=== PATIENT | male | born 1945 | race Hispanic/Latino ===

== ENCOUNTER 2017-06-09 18:04 | Observation (INO) | payer OTHER ==
[~2017-06-09] VITALS: Ht 167.6 cm; Wt 70.8 kg
[~2017-06-09 18:04] MED LIST: ACTOPLUS MET 11 EAC1 PO; ASPIRIN EC81 M1 PO; CLOTRIMAZOLE-BE15 GM TOP; ETODOLAC PO; FENOFIBRIC ACI135 M1 PO; PRED FORTE1 ML OS; PREDNISOLONE ACE5 ML OD; TOPROL XL25 M1 PO; TOPROL XL50 M1 PO
[2017-06-09 18:38] LABS: ABSOLUTE BASOPHIL COUNT 0 /CUMM (0.0-0.2); ABSOLUTE EOSINOPHIL COUNT 0.1 /CUMM (0.0-0.7); ABSOLUTE GRANULOCYTE CT 3.4 /CUMM (1.4-6.5); ABSOLUTE LYMPH COUNT 1.1 /CUMM (1.2-3.4); ABSOLUTE MONOCYTE COUNT 0.3 /CUMM (0.10-0.60); BASOPHIL % 0.4 % (0.0-2.0); GRANULOCYTE % 68.2 % (42.2-75.2); HEMATOCRIT 42.4 % (42-52); MEAN CORPUSCULAR HGB 31.2 PG (27.0-31.0); MEAN CORPUSCULAR VOLUME 97.5 FL (80.0-94.0); MEAN PLATELET VOLUME 9.7 FL (7.4-10.4); PLATELET COUNT 280 /CUMM (130-400); RBC DISTRIBUTION WIDTH 17.9 % (11.5-14.5); RED BLOOD CELL CT 4.35 /CUMM (4.70-6.10)
--- NOTE | 2017-06-09 18:56 | ED CARDIAC/CP/PALPITATIONS ---
History of Present Illness General Chief Complaint: Chest Pain Stated Complaint: CHEST TIGHTNESS Source: patient Exam Limitations: no limitations Vital Signs & Intake/Output Vital Signs & Intake/Output Vital Signs Date Time Temp Pulse Resp B/P B/P Pulse O2 O2 Flow FiO2 Mean Ox Delivery Rate 06/09 2355 98.0 56 18 112/62 96 Room Air 06/09 2222 97.9 61 17 106/68 96 Room Air 06/09 2023 61 116/72 06/09 1999 97.7 63 16 124/78 97 Room Air 06/09 1832 97.1 69 20 128/77 98 Room Air ED Intake and Output 06/10 0000 06/09 1200 Intake Total Output Total Balance Patient 156 lb Weight Weight Reported by Patient Measurement Method Allergies Coded Allergies: ibuprofen (FACIAL SWELLING 06/09/17) shellfish derived (ANAPHYLAXIS 06/09/17) Reconcile Medications Aspirin (Ecotrin*) 81 MG TABLET.DR 2 TAB PO DAILY HEART/BLOOD (Reported) Clotrimazole/Betamethasone Dip (Clotrimazole-Betamethasone Crm) 1 %-0.05 % CREAM..G. 1 LINWOOD TOP PRN SKIN (Reported) apply to affected area(s) Etodolac 500 MG TABLET 1 TAB PO PRN PAIN (Reported) Fenofibric Acid (Choline) (Fenofibric Acid) 135 MG CAPSULE.DR 1 CAP PO DAILY CHOLESTEROL/TRIGLYCERIDES (Reported) Metoprolol Succ XL (Toprol XL) 25 MG TAB 1 TAB PO DAILY Heart Pioglitazone HCl/Metformin HCl (Actoplus Met 15 MG-850 MG Tab) 15 MG-850 MG TABLET 1 TAB PO DAILY DM (Reported) Prednisolone Acetate 1 % DROPS.SUSP 1 GTT OD DAILY RIGHT EYE (Reported) Prednisolone Acetate (Pred Forte) 1 % DROPS.SUSP 1 GTT OS Monday LEFT EYE (Reported) Valacyclovir HCl (Valacyclovir) 1,000 MG TABLET 1,000 MG PO BID ORAL CANKER SORE (Reported) Triage Note: TRIAGE: PT TO ER C/C MID CHEST TIGHTNESS, ONSET THIS MORNING. CONSTANT SINCE ONSET. -SOB, -N/V, -DIAPHORESIS. PT WITH SIGNIFICANT CARDIAC HX INCLUDING KS, CABG. HAD EKG AND BLOOD WORK IN [place] PRIOR TO TRIAGE. Triage Nurses Notes Reviewed? yes Onset: Gradual Duration: hour(s):, waxing and waning Timing: recent history Quality/Severity: moderate Location: central Radiation: no radiation Activities at Onset: none Prior Chest Pain/Card Workup: no prior chest pain Modifying Factors: Improves With: rest. HPI: 72 YO gentleman h/o cabg in 2013, presents with 3/10 chest tightness since this morning. He has no diaphoresis, radiation, shortness of breath, wheeze, fever. He is uncertain about etiology of his symptoms. He is otherwise well. Past History Travel History Traveled to [place] past 21 day No Medical History Any Pertinent Medical History? 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 No Review of Systems Review of Systems Constitutional: Reports: no symptoms. EENTM: Reports: no symptoms. Respiratory: Reports: no symptoms. Cardiovascular: Reports: no symptoms. GI: Reports: no symptoms. Genitourinary: Reports: no symptoms. Musculoskeletal: Reports: no symptoms. Skin: Reports: no symptoms. Neurological/Psychological: Reports: no symptoms. Hematologic/Endocrine: Reports: no symptoms. Immunologic/Allergic: Reports: no symptoms. All Other Systems: Reviewed and Negative Physical Exam Physical Exam General Appearance: well developed/nourished, mild distress Head: atraumatic, normal appearance Eyes: Bilateral: normal appearance. Ears, Nose, Throat: normal pharynx, normal ENT inspection Neck: normal inspection, supple, full range of motion Respiratory: normal breath sounds, chest non-tender Cardiovascular: regular rate/rhythm Gastrointestinal: normal bowel sounds, soft, non-tender Back: normal inspection Extremities: normal inspection Neurologic/Psych: no motor/sensory deficits, awake, alert Skin: intact, normal color, warm/dry Core Measures ACS in differential dx? Yes No ASA d/t aspirin given CVA/TIA Diagnosis No Sepsis Present: No Sepsis Focused Exam Completed? No Progress Differential Diagnosis: AMI, pneumonia, unstable angina Plan of Care: Orders Procedure Date/time Status Consistent Carbohydrate 3 06/10 B Active TROPONIN LEVEL 06/10 06 Active BASIC ELECTROLYTES PLUS BUN&CR 06/10 06 Active EKG 06/10 06 Active TROPONIN LEVEL 06/10 0005 Complete EKG 06/10 0005 Active Pathway - chart 06/09 2352 Active Vital Signs 06/09 2341 Active Teach/Educate 06/09 2341 Active Pain Treatment and Response 06/09 2341 Active Nutritional Intake, Monitor 06/09 2341 Active Isolation 06/09 2341 Active Intake & Output 06/09 2341 Active Patient Care Conference 06/09 2341 Active Activity/Ambulation 06/09 2341 Active Patient Data 06/09 2054 Active Saline Lock 06/[address] in observation 06/09 2043 Active Misc Message 06/09 2043 Active ED Holding Orders 06/09 2043 Active Vital Signs 06/09 204 Active Code Status 06/09 2043 Active Add-on Test (ER Only) 06/09 1856 Active Intake & Output 06/09 1842 Active D-DIMER 06/09 1825 Complete Telemetry/Street Roller Engineer 06/09 181 Active TROPONIN LEVEL 06/09 181 Complete COMPREHENSIVE METABOLIC PANEL 06/09 181 Complete CBC WITHOUT DIFFERENTIAL 06/09 181 Complete EKG 06/09 1805 Active House Staff 06/09 UNK Active VTE Mechanical Prophylaxis 06/09 UNK Active FingerStick- Glucose 06/09 UNK Active ECHOCARDIOGRAM 06/09 UNK Active Current Medications Sig/Jed Start time Last Medication Dose Stop Time Status Admin Aspirin Buffered 162 MG DAILY 06/10 1000 AC (Ecotrin) Fenofibrate 145 MG DAILY 06/10 1000 AC (Tricor) Metoprolol Succinate 25 MG DAILY 06/10 1000 AC (Toprol XL) Prednisolone 1 GTT DAILY 06/10 1000 AC (Pred Forte) Valacyclovir HCl 1,000 MG BID 06/10 1000 AC (Valtrex) Insulin Aspart 0 TIDAC 06/10 08 AC (NovoLOG) Heparin Sodium 5,000 UNIT Q8 06/10 06 AC (Porcine) Laboratory Tests 06/10/17 0025: Troponin I < 0.01 06/09/17 1825: Anion Gap 12, Estimated GFR 43 L, BUN/Creatinine Ratio 23.1, Glucose 124 H, Calcium 9.3, Total Bilirubin 0.5, AST 34, ALT 38, Alkaline Phosphatase 53, Troponin I < 0.01, Total Protein 6.7, Albumin 3.8, Globulin 2.9, Albumin/ Globulin Ratio 1.3, D-Dimer High Sensitivty < 200, CBC w Diff NO MAN DIFF REQ, RBC 4.35 L, MCV 97.5 H, MCH 31.2 H, MCHC 32.0 L, RDW 17.9 H, MPV 9.7, Gran % 68.2, Lymphocytes % 22.6, Monocytes % 6.8, Eosinophils % 2.0, Basophils % 0.4, Absolute Granulocytes 3.4, Absolute Lymphocytes 1.1 L, Absolute Monocytes 0.3, Absolute Eosinophils 0.1, Absolute Basophils 0 Diagnostic Imaging: Viewed by Me: Radiology Read. Discussed w/RAD: Radiology Read. CXR Impression: PATIENT: CINDA ROCHE PRESENT AGE: 72 PATIENT ACCOUNT NO: [id number] : 47 LOCATION: [facility] ORDERING PHYSICIAN: Rush López MD SERVICE DATE: 06/09/17 EXAM TYPE: RAD - XRY- PORTABLE CHEST XRAY EXAMINATION: XR PORTABLE CHEST CLINICAL INFORMATION: Chest pain COMPARISON: Prior chest CT and chest x-ray March 2016. TECHNIQUE: Portable frontal view of the chest was obtained. FINDINGS: Sternotomy wires in place and intact. Lungs clear. Cardiac silhouette is dynamic and pulmonary vascularity normal. Bone and soft tissues unremarkable. IMPRESSION: Postoperative changes stable. No acute disease. DICTATED BY: Alber Urbina MD DATE/TIME DICTATED:06/09/171946 PLATFORM OPERATIONS DIRECTOR:KATIANA DATE/TIME TRANSCRIBED:06/09/171946 CONFIDENTIAL, DO NOT COPY WITHOUT APPROPRIATE AUTHORIZATION. <Electronically signed in Other Vendor System> SIGNED BY: Alber Urbina MD 06/09/171950 Initial ED EKG: no acute changes Departure Departure Disposition: STILL A PATIENT Condition: Stable Clinical Impression Primary Impression: Chest pain Referrals: Bo Ramos MD (PCP/Family) Departure Forms: Customer Survey General Discharge Information Observation Note Spoke With: Gilmar DELGADO,Manuel Place Patient In: Non-ED OBS Care Area Rationale for Observation: My rational for observation is as follows . pt with nitro responsive chest pain, h/o cabg/ cad. pt to be placed in observation, serial trops/ekg cards to evaluate in AM. 20:[address] escudero. Critical Care Note Critical Care Note Critical Care Time: 30-74 min Comments: pt given nitro which led to resolution of chest pain.
--- NOTE | 2017-06-09 19:51 | RADIOLOGY REPORT ---
EXAMINATION: XR PORTABLE CHEST CLINICAL INFORMATION: Chest pain COMPARISON: Prior chest CT and chest x-ray March 2016. TECHNIQUE: Portable frontal view of the chest was obtained. FINDINGS: Sternotomy wires in place and intact. Lungs clear. Cardiac silhouette is dynamic and pulmonary vascularity normal. Bone and soft tissues unremarkable. IMPRESSION: Postoperative changes stable. No acute disease.
[2017-06-09] MEDS ORDERED: VALACYCLOVIR1000 MG PO (21:01)
--- NOTE | 2017-06-09 21:24 | History & Physical ---
Santhosh Goetz MD 06/09/172122: General Information and HPI MD Statement: I have seen and personally examined CINDA ROCHE and documented this H&P. The patient is a 72 year old M who presented with a patient stated chief complaint of [chest tightness]. Source of Information: patient Exam Limitations: no limitations History of Present Illness: Patient is a 72-year-old male with PMH significant for CAD status post CABG, HTN , HLD, DM, CKD, sciatica, OA, glaucoma, benign neck tumor who presents complaining of chest tightness. Patient stated he was awoken at 1 AM the morning of admission with chest discomfort which he describes as a substernal tightness. He described the pain as positional, worsening when transitioning from a supine to a sitting position. He was able to go to work and at times did not notice the discomfort however he believes that it was constantly present and did not change from a 3/10. The pain did not anila after work and he came to the ED. After receiving aspirin and nitroglycerin in the ED the discomfort improved. He denied any radiation, associated shortness of breath, diaphoresis, lightheadedness, dizziness, nausea, vomiting. Allergies/Medications Allergies: Coded Allergies: ibuprofen (FACIAL SWELLING 06/09/17) shellfish derived (ANAPHYLAXIS 06/09/17) Home Med list Aspirin (Ecotrin*) 81 MG TABLET.DR 2 TAB PO DAILY HEART/BLOOD (Reported) Clotrimazole/Betamethasone Dip (Clotrimazole-Betamethasone Crm) 1 %-0.05 % CREAM..G. 1 LINWOOD TOP PRN SKIN (Reported) apply to affected area(s) Etodolac 500 MG TABLET 1 TAB PO PRN PAIN (Reported) Fenofibric Acid (Choline) (Fenofibric Acid) 135 MG CAPSULE.DR 1 CAP PO DAILY CHOLESTEROL/TRIGLYCERIDES (Reported) Metoprolol Succ XL (Toprol XL) 25 MG TAB 1 TAB PO DAILY Heart Nitroglycerin (Nitrostat) 0.4 MG TAB.SUBL 1 TAB SL AD PRN CHEST PAIN 1st sign of attack; may repeat every 5 minutes until relief; if pain persists after 3 tablets in 15 minutes, prompt medical att.. Nitroglycerin (Nitro-Bid) 2 % OINT...G. 0.5 GM TOP DAILY CHEST PAIN use it once in the morning and wash it off after 12 hrs Pioglitazone HCl/Metformin HCl (Actoplus Met 15 MG-850 MG Tab) 15 MG-850 MG TABLET 1 TAB PO DAILY DM (Reported) Prednisolone Acetate 1 % DROPS.SUSP 1 GTT OD DAILY RIGHT EYE (Reported) Prednisolone Acetate (Pred Forte) 1 % DROPS.SUSP 1 GTT OS Monday LEFT EYE (Reported) Valacyclovir HCl (Valacyclovir) 1,000 MG TABLET 1,000 MG PO BID ORAL CANKER SORE (Reported) Past History Travel History Traveled to [place] past 21 day No Medical History Neurological: NONE EENT: glaucoma Cardiovascular: hypertension, hyperlipidemia, myocardial infarction (inferior), CAD, CABG X 3 07/13 ON HIGH BLOOD PRESSURE MEDS Respiratory: NONE Gastrointestinal: NONE Hepatic: NONE Renal: nephrolithiasis Musculoskeletal: osteoarthritis, sciatica Psychiatric: NONE Endocrine: diabetes Blood Disorders: NONE Cancer(s): NONE 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 FATHER FH: NV (myocardial infarction), Onset: 60+. BROTHER FH: NV (myocardial infarction), Onset: 60+. SISTER FH: NV (myocardial infarction), Onset: 60+. Psychosocial History Where do you live? Home Who Do You Live With? spouse Smoking Status: Never Smoked ETOH Use: denies use Illicit Drug Use: denies illicit drug use Functional Ability ADLs Independent: dressing, eating, toileting, bathing. Ambulation: independent IADLs Independent: shopping, housework, finances, food prep, telephone, transportation , medication admin. Review of Systems Review of Systems Constitutional: Denies: chills, fever, malaise, weakness. EENTM: Denies: blurred vision, double vision, visual changes. Cardiovascular: Reports: chest pain (pressure). Denies: orthopena, palpitations. Respiratory: Denies: cough, orthopnea, short of breath. GI: Reports: no symptoms. Genitourinary: Reports: no symptoms. Musculoskeletal: Reports: no symptoms. Skin: Reports: no symptoms. Neurological/Psychological: Reports: no symptoms. Exam & Diagnostic Data Last 24 Hrs of Vital Signs/I&O Vital Signs Date Time Temp Pulse Resp B/P B/P Pulse O2 O2 Flow FiO2 Mean Ox Delivery Rate 06/09 2355 98.0 56 18 112/62 96 Room Air 06/09 2222 97.9 61 17 106/68 96 Room Air 06/09 2023 61 116/72 06/09 1999 97.7 63 16 124/78 97 Room Air 06/09 1832 97.1 69 20 128/77 98 Room Air Intake & Output 06/10 0800 06/10 0000 06/09 1600 Intake Total Output Total Balance Patient 156 lb 156 lb Weight Weight Reported by Patient Measurement Method Physical Exam General Appearance Alert, Oriented X3, Cooperative, No Acute Distress Skin Temp/Moisture Exam: Warm/Dry Sepsis Skin Exam (color): Normal for Ethnicity Neck Supple, No JVD Cardiovascular Regular Rate, Normal S1, Normal S2, surgical scar in the midline of the chest, chest is not tender to palpation Lungs Clear to Auscultation, Normal Air Movement Abdomen Normal Bowel Sounds, Soft, No Tenderness Neurological Normal Speech, Strength at 5/5 X4 Ext, Normal Tone, Sensation Intact, Cranial Nerves 3-12 NL Extremities No Clubbing, No Cyanosis, No Edema Last 24 Hrs of Labs/Darryn: Laboratory Tests 06/10/17 0025: Troponin I < 0.01 06/09/17 1825: Anion Gap 12, Estimated GFR 43 L, BUN/Creatinine Ratio 23.1, Glucose 124 H, Calcium 9.3, Total Bilirubin 0.5, AST 34, ALT 38, Alkaline Phosphatase 53, Troponin I < 0.01, Total Protein 6.7, Albumin 3.8, Globulin 2.9, Albumin/ Globulin Ratio 1.3, D-Dimer High Sensitivty < 200, CBC w Diff NO MAN DIFF REQ, RBC 4.35 L, MCV 97.5 H, MCH 31.2 H, MCHC 32.0 L, RDW 17.9 H, MPV 9.7, Gran % 68.2, Lymphocytes % 22.6, Monocytes % 6.8, Eosinophils % 2.0, Basophils % 0.4, Absolute Granulocytes 3.4, Absolute Lymphocytes 1.1 L, Absolute Monocytes 0.3, Absolute Eosinophils 0.1, Absolute Basophils 0 Diagnostic Data EKG Results NSR with PAC, 1st degree AV block MI 252, HR 67, QTc 325 CXR Results no acute cardiopulmonary process Assessment/Plan Assessment: Patient is a 72-year-old male with PMH significant for CAD status post CABG, strong family cardiac history, HTN, HLD, DM, CK 50, sciatica, OA, glaucoma, benign neck tumor who presents complaining of chest tightness. His chest pain is atypical, nonradiating substernal chest tightness and positional with no associated including palpitations, nausea, vomiting, shortness of breath. Chest x-ray shows no acute pathology, EKG has a PAC and old first-degree AV block but no signs of significant ST-T segment changes, initial troponin was negative. Problem list #Atypical chest pain #History of CAD status post CABG, HTN, HLD, DM, CKD Plan -Placed in observation on telemetry -Serial troponins and EKGs to rule out ACS -Cardiac neurology consult, Dr. Vgea was called from ED -Echocardiogram -patient refuses to take insulin because he experienced hypoglycemia a previous hospital admission, he was counseled on the risks of this and the rationale for not providing him with metformin. -Accu-Cheks 3 times a day before meals at bedtime, NovoLog sliding scale ordered patient has right to refuse -Continue home medications including aspirin, fenofibrate, metoprolol, valacyclovir -Diabetic diet -DVT prophylaxis: Subcutaneous heparin,ALPS -CODE STATUS: Full code As Ranked By This Provider Problem List: 1. Chest pain Core Measures/Misc (01/15) Acute Coronary Syndrome ACS Diagnosis: No Congestive Heart Failure Congestive Heart Failure Diagnosis No Cerebrovascular Accident CVA/TIA Diagnosis: No VTE (View Protocol) VTE Risk Factors Age>40 No Mechanical VTE Prophylaxis d/t N/A MechProphylax Ordered No VTE Pharm Prophylaxis d/t NA PharmProphylax ordered Sepsis (View protocol) Sepsis Present: No Jason DELGADO,Mac 06/10/17 0251: Resident Review Statement Resident Statement: examined this patient, discussed with business intern Other Findings: 72-year-old gentleman with a significant cardiac history including CABG in 2014 involving JENSEN to LAD , attention, hyperlipidemia, diabetes, significant family history for CAD, presents with atypical nonradiating substernal chest pain. No associated diaphoresis or shortness of breath. Initial Trop and EKG unremarkable Impression Atypical chest pain. History of chronic diseases: CAD, hypertension, hyperlipidemia, diabetes mellitus, CKD. Plan Place in diameter observation Trend troponins and EKG 2 to rule out ACS A cardiogram in the morning Will await further cardiology recommendation To check 3 times a day and bedtime Hold off oral hypoglycemic home agents, and initiated NovoLog sliding scale ( patient at bedside refused using any insulin based on previous history of hypoglycemia). DVT prophylaxis: Heparin and abscess CODE STATUS full Gilmar DELAGDO, [facility] 06/10/17 0529: Attending MD Review Statement Attending Statement Attending MD Statement: examined this patient, discuss w/resident/PA/BUSINESS ANALYST INTERN, agreed w/resident/PA/BUSINESS ANALYST INTERN, discussed with family, reviewed images, amended to note Attending Assessment/Plan: 72 yo M with h/o T2DM, CAD s/p triple CABG (2014), HTN, parotid tumor s/p resection, is here for evaluation of substernal chest tightness. Patient reports this woke him up at 1 am the night prior to admission. It is nonradiating, positional worse when he is sitting up. He took aspirin in the morning. 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 He received aspirin and nitro with some relief in the chest tightness, now almost resolved. He denies associated dyspnea, palpitations or lightheadedness. Of note, patient was at [facility] (Mar 2016) for evaluation of lightheadedness, noted to have conduction abnormality on EKG and was advised reduced dose of beta mariel. Vitals stable. Examination is unremarkable. Chest pain is not respoducible. Labs: macrocytic anemia, D-dimer <200, BUN 37, creat 1.6 (baseline 1.0 1.5), glucose 124, trop neg. CXR: postoperative changes stable, no acute disease. EKG: sinus rhythm, old inferior NV, PAC's, LVH, 1st degree AV block, Qtc 385. Stress test (2014): EF 34%. Echo (as per Cardio note): low normal EF 50% with mild to moderate MR, mild TR and LVH. Assessment and plan: 1. Substernal chest tightness, rule out ACS 2. History of CAD s/p CABG 3. CKD stage 3 4. Essential hypertension and T2DM - 23 hour observation on Telemetry - Monitor for arrhythmias - Serial EKG and troponin - Obtain Echo - Cardio consult - If recurrent chest pain, EKG changes or troponin elevation, may need cardiac cath. - If troponin negative, consider outpatient stress test - Continue aspirin, metoprolol, fenofibrate - Add nitropaste 1/2 inch topical - Check TSH, free T4, HbA1c, lipid panel - Hold pioglitazone/ metformin, initiate novolog for sugars > 200. Patient does not want to take insulin. - Continue valcyclovir for cold sores DVT ppx Hep SC. Full code. Observation Initial Note - I have personally examined CINDA ROCHE on 06/10/17 at 0529. The disposition of CINDA ROCHE is uncertain at this time and before a determination can be made, he requires a period of observation for the following reasons [Chest pain]
[2017-06-09 23:55] VITALS: BP 112/62
[2017-06-10 06:35] VITALS: BP 108/70
--- NOTE | 2017-06-10 08:54 | PN-Observation ---
Observation Note Observation Note _ I have personally examined CINDA ROCHE. him disposition is uncertain at this time. Before a determination can be made, he requires continued observation for the following reasons chest pressure. Assessment/Plan Assessment: 72-year-old gentleman with a significant cardiac history including CABG in 2014 involving JENSEN to LAD , attention, hyperlipidemia, diabetes, significant family history for CAD, presents with atypical nonradiating substernal chest pain. No associated diaphoresis or shortness of breath. Initial Trop and EKG unremarkable Impression Atypical chest pain. History of chronic diseases: CAD, hypertension, hyperlipidemia, diabetes mellitus, CKD. Plan continue in telemetry ACS ruled ut Echocardiogram in the morning Will await further cardiology recommendation ACCU check3 times a day and bedtime Hold off oral hypoglycemic home agents, and initiated NovoLog sliding scale ( patient at bedside refused using any insulin based on previous history of hypoglycemia). DVT prophylaxis: Heparin and abscess CODE STATUS full Problem List: 1. Chest pain Subjective Subjective: When examined, patient was standing comfortably and ambulating and dosing no chest tightness pain, or pressure. He denies any shortness of breath and states that he feels much better than last night. He is eager for discharge. Review of Systems Constitutional: Reports: see HPI. Objective Last 24 Hrs of Vital Signs/I&O Vital Signs Date Time Temp Pulse Resp B/P B/P Pulse O2 O2 Flow FiO2 Mean Ox Delivery Rate 06/10 0635 97.7 62 18 108/70 95 Room Air 06/09 2355 98.0 56 18 112/62 96 Room Air 06/09 2222 97.9 61 17 106/68 96 Room Air 06/09 2023 61 116/72 06/09 1999 97.7 63 16 124/78 97 Room Air 06/09 1832 97.1 69 20 128/77 98 Room Air Intake & Output 06/10 1600 06/10 0800 06/10 0000 Intake Total 100 Output Total Balance 100 Intake, Oral 100 Patient 70.76 kg 70.76 kg Weight Weight Reported by Patient Measurement Method Physical Exam General Appearance: Alert, Oriented X3, Cooperative Other Physical Findings: Skin Temp/Moisture Exam: Warm/Dry Sepsis Skin Exam (color): Normal for Ethnicity Neck Supple, No JVD Cardiovascular Regular Rate, Normal S1, Normal S2, surgical scar in the midline of the chest, chest is not tender to palpation Lungs Clear to Auscultation, Normal Air Movement Abdomen Normal Bowel Sounds, Soft, No Tenderness Neurological Normal Speech, Strength at 5/5 X4 Ext, Normal Tone, Sensation Intact, Cranial Nerves 3-12 NL Extremities No Clubbing, No Cyanosis, No Edema Current Medications: Current Medications Sig/Jed Start time Last Medication Dose Route Stop Time Status Admin Acetaminophen 0 .STK-MED ONE 06/09 2056 DC PO Acetaminophen 650 MG ONCE ONE 06/09 2044 DC 06/09 PO 06/09 Aspirin 325 MG ONCE ONE 06/09 1999 DC 06/09 PO 06/09 Aspirin 0 .STK-MED ONE 06/09 1958 DC PO Aspirin Buffered 162 MG DAILY 06/10 1000 AC 06/10 PO 0847 Fenofibrate 145 MG DAILY 06/10 1000 AC 06/10 PO 0847 Heparin Sodium 5,000 UNIT Q8 06/10 0600 AC 06/10 (Porcine) SC 0629 Insulin Aspart 0 TIDAC 06/10 08 AC SC Metoprolol Succinate 25 MG DAILY 06/10 1000 AC 06/10 PO 0849 Nitroglycerin 0.5 GM Q6P PRN 06/10 0745 TOP Nitroglycerin 0 .STK-MED ONE 06/09 2057 TN TOP Nitroglycerin 2 GM STAT STA 06/09 2042 DC 06/09 TOP 06/09 Nitroglycerin 0.4 MG ONCE ONE 06/09 1999 DC 06/09 SL 06/09 Nitroglycerin 0 .STK-MED ONE 06/09 1958 [facility] Prednisolone 1 GTT DAILY 06/10 1000 AC 06/10 OPH 0847 Valacyclovir HCl 1,000 MG BID 06/10 1000 AC 06/10 PO 0851 Last 24 Hrs of Labs/Mics: Laboratory Tests 06/10/17 0701: Anion Gap 8, Estimated GFR 50 L, BUN/Creatinine Ratio 27.1 H, Troponin I < 0.01 06/10/17 0025: Troponin I < 0.01 06/09/17 1825: Anion Gap 12, Estimated GFR 43 L, BUN/Creatinine Ratio 23.1, Glucose 124 H, Calcium 9.3, Total Bilirubin 0.5, AST 34, ALT 38, Alkaline Phosphatase 53, Troponin I < 0.01, Total Protein 6.7, Albumin 3.8, Globulin 2.9, Albumin/ Globulin Ratio 1.3, D-Dimer High Sensitivty < 200, CBC w Diff NO MAN DIFF REQ, RBC 4.35 L, MCV 97.5 H, MCH 31.2 H, MCHC 32.0 L, RDW 17.9 H, MPV 9.7, Gran % 68.2, Lymphocytes % 22.6, Monocytes % 6.8, Eosinophils % 2.0, Basophils % 0.4, Absolute Granulocytes 3.4, Absolute Lymphocytes 1.1 L, Absolute Monocytes 0.3, Absolute Eosinophils 0.1, Absolute Basophils 0
[2017-06-10 14:44] VITALS: BP 104/60
[2017-06-10 21:41] VITALS: BP 116/70
--- NOTE | 2017-06-10 22:47 | PN- Att Addend ---
Attending Addendum Attending Brief Note The patient was seen and discussed with house staff, family, and Dr. Vega. Troponin levels negative, however some response to NTG and subtle EKG findings. Will obtain ECHO in morning and make decision regarding care post this. May consider OP stress testing.
[2017-06-11 06:27] VITALS: BP 104/72
[2017-06-11 14:04] VITALS: BP 112/72
--- NOTE | 2017-06-11 14:05 | PN- Housestaff ---
See Addendum Subjective Follow-up For: Chest pain Rule out ACS Tele-Events Since Last Visit: SR, NSR, pulse rate 70-93 Subjective: Patient visited today, was lying in bed comfortably in no acute distress, was alert and oriented. Patient is in great mood, was requesting to be discharged No fever or chills, no shortness of breathing, no chest pain, no other events. After reviewing everything with attending and cardiology was decided to discharge patient with recommendation to follow in outpatient with PCP and cardiology for possible stress test. Review of Systems Constitutional: Reports: see HPI. Objective Last 24 Hrs of Vital Signs/I&O Vital Signs Date Time Temp Pulse Resp B/P B/P Pulse O2 O2 Flow FiO2 Mean Ox Delivery Rate 06/11 1404 97.9 64 18 112/72 95 Room Air 06/11 0858 61 104/72 06/11 0627 98.4 61 18 104/72 95 Room Air 06/10 2141 98.2 56 18 116/70 95 Room Air Intake & Output 06/11 1600 06/11 0800 06/11 0000 Intake Total 300 310 Output Total Balance 300 310 Intake, IV 10 Intake, Oral 300 300 Physical Exam General Appearance: Alert, Oriented X3, Cooperative, No Acute Distress Skin: No Significant Lesion Skin Temp/Moisture Exam: Warm/Dry Sepsis Skin Exam (color): Normal for Ethnicity HEENT: Atraumatic, EOMI, Mucous Membr. moist/pink Cardiovascular: Regular Rate, Normal S1, Normal S2 Lungs: Clear to Auscultation Abdomen: Soft, No Tenderness Neurological: Normal Speech Extremities: No Edema Current Medications: Current Medications Sig/Jed Start time Last Medication Dose Route Stop Time Status Admin Aspirin Buffered 162 MG DAILY 06/10 1000 AC 06/11 PO 0859 Fenofibrate 145 MG DAILY 06/10 1000 AC 06/11 PO 0858 Heparin Sodium 5,000 UNIT Q8 06/10 06 AC 06/11 (Porcine) SC 1349 Insulin Aspart 0 TIDAC 06/10 08 AC SC Metoprolol Succinate 25 MG DAILY 06/10 1000 AC 06/11 PO 0858 Nitroglycerin 0.5 GM Q6P PRN 06/10 0745 AC TOP Prednisolone 1 GTT DAILY 06/10 1000 AC 06/11 OPH 0859 Valacyclovir HCl 1,000 MG BID 06/10 1000 AC 06/11 PO 0859 Last 24 Hrs of Lab/Darryn Results Last 24 Hrs of Labs/Mics: Laboratory Tests 06/11/17 0830: Anion Gap 11, Estimated GFR 46 L, BUN/Creatinine Ratio 26.0 H Assessment/Plan Assessment: 72-year-old gentleman with a significant cardiac history including CABG in 2015 involving JENSEN to LAD , attention, hyperlipidemia, diabetes, significant family history for CAD, presents with atypical nonradiating substernal chest pain. No associated diaphoresis or shortness of breath. Initial Trop and EKG unremarkable Impression Atypical chest pain. History of chronic diseases: CAD, hypertension, hyperlipidemia, diabetes mellitus, CKD. Patient was placed under observation in telemetry floor. ACS was ruled out with serial EKG and troponins. Echocardiogram was done: Normal size left ventricle. Moderate concentric left ventricular hypertrophy. Borderline reduced global left ventricular systolic function. Borderline normal left ventricular ejection fraction estimated at 50-55%. Mildly hypokinetic distal septum. Abnormal relaxation filling pattern of the left ventricle for age (stage 1 diastolic dysfunction). Normal right ventricular size and function. Normal atrial size. Mild mitral regurgitation. Mild tricuspid regurgitation. No evidence of pulmonary hypertension DVT prophylaxis: Heparin and ALPS CODE STATUS full As noted above patient was discharged with recommendation to follow with PCP and senior pastor in outpatient. Problem List: 1. Chest pain Pain Ratin Pain Location: None Pain Goal: Pain 4 or less Pain Plan: Continue current plan Tomorrow's Labs & Rationales: None
--- NOTE | 2017-06-11 15:04 | ECHOCARDIOGRAM REPORT ---
PAIN, CINDA Age: 72 : 1945 Gender: M Exam Date: 06/11/2017 11:26 Exam Location: [place] Ht (in): 66 Wt (lb): 156 BSA: 1.83 BP: 104 / 72 Ordering Physician: Mac Gomez MD Referring Physician: Elliott Vega MD Technologist: Shi Pereira [facility] Room Number: [id number] Indications: CHEST PAIN Rhythm: Sinus Technical Quality: Fair FINDINGS Left Ventricle Normal size left ventricle. Moderate concentric left ventricular hypertrophy. Borderline reduced global left ventricular systolic function. Borderline normal left ventricular ejection fraction estimated at 50-55%. Mildly hypokinetic distal septum. Abnormal relaxation filling pattern of the left ventricle for age (stage 1 diastolic dysfunction). Right Ventricle Normal right ventricular size and function. Right Atrium Normal right atrial size. Left Atrium Normal left atrial size. Mitral Valve Structurally normal mitral valve. Mild mitral regurgitation. Aortic Valve Trileaflet aortic valve. Mild aortic sclerosis. No aortic valve stenosis or regurgitation. Tricuspid Valve Structurally normal tricuspid valve. Mild tricuspid regurgitation. No evidence of pulmonary hypertension. Right ventricular systolic pressure estimated to be within the normal range at 20 mmHg. Pulmonic Valve Pulmonic valve not well visualized, grossly normal. No pulmonic regurgitation. Pericardium No pericardial effusion. Great Vessels Normal size aortic root. CONCLUSIONS Normal size left ventricle. Moderate concentric left ventricular hypertrophy. Borderline reduced global left ventricular systolic function. Borderline normal left ventricular ejection fraction estimated at 50-55%. Mildly hypokinetic distal septum. Abnormal relaxation filling pattern of the left ventricle for age (stage 1 diastolic dysfunction). Normal right ventricular size and function. Normal atrial size. Mild mitral regurgitation. Mild tricuspid regurgitation. No evidence of pulmonary hypertension. Elliott Vega M.D. (Electronically Signed) Final Date: 11 June 2017 15:04 MEASUREMENTS (Male / Female) Normal Values 2D ECHO LV Diastolic Diameter PLAX 4.7 cm 4.2 - 5.9 / 3.9 - 5.3 cm LV Systolic Diameter PLAX 3.3 cm 2.1 - 4.0 cm LV Fractional Shortening PLAX 29.8 % 25 - 46 % LV Ejection Fraction 2D Teich 56.9 % IVS Diastolic Thickness 1.4 cm LVPW Diastolic Thickness 1.4 cm LV Relative Wall Thickness 0.6 LVOT Diameter 2.1 cm Aortic Root Diameter 2.9 cm LA Systolic Diameter LX 3.9 cm 3.0 - 4.0 / 2.7 - 3.8 cm LA Volume 37.0 cm 18 - 58 / 22 - 52 cm Ascending Aorta Diameter 3.2 cm DOPPLER AV Peak Velocity 134.0 cm/s AV Peak Gradient 7.2 mmHg AV Mean Velocity 96.5 cm/s AV Mean Gradient 4.0 mmHg AV Velocity Time Integral 27.0 cm LVOT Peak Velocity 101.0 cm/s LVOT Peak Gradient 4.1 mmHg LVOT Mean Velocity 63.6 cm/s LVOT Mean Gradient 2.0 mmHg LVOT Velocity Time Integral 19.3 cm LVOT Stroke Volume 66.8 cm AV Area Cont Eq vti 2.5 cm AV Area Cont Eq pk 2.6 cm MV Peak Velocity 97.8 cm/s MV Peak Gradient 3.8 mmHg MV Mean Velocity 51.5 cm/s MV Mean Gradient 1.0 mmHg Mitral E Point Velocity 66.6 cm/s Mitral A Point Velocity 82.9 cm/s Mitral E to A Ratio 0.8 MV PHT Velocity 72.9 cm/s MV Deceleration Sanders 233.0 cm/s MV Pressure Half Time 93.9 ms MV Area PHT 2.3 cm MV Deceleration Time 240.0 ms TR Peak Velocity 193.0 cm/s TR Peak Gradient 14.9 mmHg Right Atrial Pressure 5.0 mmHg Pulmonary Artery Systolic Pressu 19.9 mmHg Right Ventricular Systolic Press 19.9 mmHg PV Peak Velocity 134.0 cm/s PV Peak Gradient 7.2 mmHg PV Mean Velocity 75.3 cm/s PV Mean Gradient 3.0 mmHg PV Velocity Time Integral 26.9 cm LV E' Lateral Velocity 9.8 cm/s Mitral E to LV E' Lateral Ratio 6.8 LV E' Septal Velocity 6.1 cm/s Mitral E to LV E' Septal Ratio 10.8
--- NOTE | 2017-06-11 17:24 | Cons- Cardiology ---
General Information and HPI Allergies/Medications Allergies: Coded Allergies: ibuprofen (FACIAL SWELLING 06/09/17) shellfish derived (ANAPHYLAXIS 06/09/17) Home Med List: Aspirin (Ecotrin*) 81 MG TABLET.DR 2 TAB PO DAILY HEART/BLOOD (Reported) Clotrimazole/Betamethasone Dip (Clotrimazole-Betamethasone Crm) 1 %-0.05 % CREAM..G. 1 LINWOOD TOP PRN SKIN (Reported) apply to affected area(s) Etodolac 500 MG TABLET 1 TAB PO PRN PAIN (Reported) Fenofibric Acid (Choline) (Fenofibric Acid) 135 MG CAPSULE.DR 1 CAP PO DAILY CHOLESTEROL/TRIGLYCERIDES (Reported) Metoprolol Succ XL (Toprol XL) 25 MG TAB 1 TAB PO DAILY Heart Pioglitazone HCl/Metformin HCl (Actoplus Met 15 MG-850 MG Tab) 15 MG-850 MG TABLET 1 TAB PO DAILY DM (Reported) Prednisolone Acetate 1 % DROPS.SUSP 1 GTT OD DAILY RIGHT EYE (Reported) Prednisolone Acetate (Pred Forte) 1 % DROPS.SUSP 1 GTT OS Monday LEFT EYE (Reported) Valacyclovir HCl (Valacyclovir) 1,000 MG TABLET 1,000 MG PO BID ORAL CANKER SORE (Reported) Past History Travel History Traveled to [place] past 21 day No Medical History Blood Transfusion Hx: No Neurological: NONE EENT: glaucoma Cardiovascular: hypertension, hyperlipidemia, myocardial infarction (inferior), CAD, CABG X 3 07/13 ON HIGH BLOOD PRESSURE MEDS Respiratory: NONE Gastrointestinal: NONE Hepatic: NONE Renal: nephrolithiasis Musculoskeletal: osteoarthritis, sciatica Psychiatric: NONE Endocrine: diabetes Blood Disorders: NONE Cancer(s): NONE DEVELOPMENTAL PSYCHOLOGIST/Reproductive: NONE Other Medical Hx: erectile dysfunction Surgical History Surgical History: appendectomy, CABG, cabg in 2015 tonsillectomy left parotid tumor resection Family History Relations & Conditions If Any: MOTHER FH: CHF (congestive heart failure), Onset: 60+. FATHER FH: NH (myocardial infarction), Onset: 60+. BROTHER FH: NH (myocardial infarction), Onset: 60+. SISTER FH: NH (myocardial infarction), Onset: 60+. Psychosocial History Where Do You Live? Home Who Do You Live With? spouse Smoking Status: Never Smoked ETOH Use: denies use Illicit Drug Use: denies illicit drug use Functional Ability ADLs Independent: dressing, eating, toileting, bathing. Ambulation: independent IADLs Independent: shopping, housework, finances, food prep, telephone, transportation , medication admin. Assessment/Plan Consult Acknowledgment - Thank you for your consult request.
[2017-06-11] MEDS ORDERED: NITROSTAT0.4 M1 SL ×5 (17:28→17:49)
[2017-06-11] MEDS ORDERED: NITRO-BID1 GM TOP ×3 (17:28→19:30)
--- NOTE | 2017-06-11 17:29 | PN- Cardiology ---
Subjective Subjective: Feels improved and no further chest discomfort. Assessment/Plan Assessment/Plan 72-y-o-w-m w/ hx HTN, HLD, DM, strong FH premature CAD, conduction disease ( first-degree AV block, IVCD) & CAD (s/p CABG x3 w/ JENSEN to LAD, SVG to OM, & SVG to PDA) who presented to the ED on 06/09/2017 w/ c/o CP. Fortunately, serial troponin I determinations have excluded myocardial necrosis, but some mild electrocardiographic changes ("new" upright T waves in leads III, aVF, V5, V6) were observed when compared to his previous tracing from 2015. Fortunately, he has been chest discomfort free since later last evening. The plan will be to discharge to home for further outpatient evaluation and management with his attending grape cutter (Reinaldo Gale M.D. PhD). As he did feel improved, albeit after a longer than expected time interval, from nitrates we will discharge him home on long-acting topical nitrates and short acting nitrates. Continue telemetry? No
--- NOTE | 2017-06-11 17:32 | Patient Discharge Instructions ---
Discharge Instructions General Discharge Information You were seen/treated for: Chest pain/tightness evaluation Special Instructions: Please follow-up with your armoured corps officer and primary care physician within one week of discharge. Bo Choudhary MD your primary care physician can give you a referral for sleep study. Please discuss about it with him on your next visit. Please return to emergency if symptoms worsen. Diet Continue normal diet: Yes Recommended Diet: Heart Healthy Activity Full Activity/No Limits: Yes Activity Self Limited: Yes Acute Coronary Syndrome Inclusion Criteria At DC or during hospital stay patient has or had the following: ACS DIAGNOSIS No Discharge Core Measures Meds if any: Prescribed or Continued at Discharge Meds if any: NOT Prescribed or Continued at Discharge Congestive Heart Failure Inclusion Criteria At DC or during hospital stay patient has or had the following: CHF DIAGNOSIS No Discharge Core Measures Meds if any: Prescribed or Continued at Discharge Meds if any: NOT Prescribed or Continued at Discharge Cerebrovascular accident Inclusion Criteria At DC or during hospital stay patient has or had the following: CVA/TIA Diagnosis No Discharge Core Measures Meds if any: Prescribed or Continued at Discharge Meds if any: NOT Prescribed or Continued at Discharge Venous thromboembolism Inclusion Criteria VTE Diagnosis No VTE Type NONE VTE Confirmed by (Test) NONE Discharge Core Measures - Per Current guidelines, there needs to be overlap - treatment for the first 5 days of Warfarin therapy. - If discharged on Warfarin prior to 5 days of - overlap therapy, the patient will need to be - assessed for post discharge needs including - *Post discharge parental anticoagulation - *Warfarin and/or parental anticoagulation education - *Follow up date to check INR post discharge At least 5 days overlap therapy as Inpatient No Meds if any: Prescribed or Continued at Discharge Note: Overlap Therapy is Warfarin and Anticoagulant Meds if any: NOT Prescribed or Continued at Discharge
== END 2017-06-11 18:20 ==
LOC: ERH 18:04 → 1NO 20:44 → ERHI 20:44 → ENRESERV 21:51 → 1NO 23:35
PROVIDERS: Physician Assistant Medical
DX: R07.89 Other chest pain (principal); I44.0 Atrioventricular block, first degree; M54.30 Sciatica, unspecified side; M19.90 Unspecified osteoarthritis, unspecified site; H40.9 Unspecified glaucoma; I25.10 Atherosclerotic heart disease of native coronary artery without angina pectoris; Z95.1 Presence of aortocoronary bypass graft; E78.5 Hyperlipidemia, unspecified; E11.9 Type 2 diabetes mellitus without complications; I12.9 Hypertensive chronic kidney disease with stage 1 through stage 4 chronic kidney disease, or unspecified chronic kidney disease; N18.3 Chronic kidney disease, stage 3 (moderate); Z87.442 Personal history of urinary calculi; Z79.82 Long term (current) use of aspirin; Z79.84 Long term (current) use of oral hypoglycemic drugs
CPT/HCPCS: 36415; 71045; 82436; 93005; 93010; 93306; 96372; G0378; J1644; J3490

== ENCOUNTER → 2017-11-21 | Day surgery (SDC) | payer OTHER ==
[~2017-11-21] VITALS: Ht 167.6 cm; Wt 72.6 kg
[~2017-11-21] MED LIST changes: +NITRO-BID1 GM TOP; +NITROSTAT0.4 M1 SL; +VALACYCLOVIR1000 MG PO
--- NOTE | 2017-11-21 12:49 | Operative Report ---
Operative/Inv Procedure Report Surgery Date: 11/21/17 Name of Procedure: left renal ESWL: fluoroscopy Pre-Operative Diagnosis: left renal stone Post-Operative Diagnosis: same Estimated Blood Loss: none Surgeon/Airplane Cover Maker: Rory Da Silva MD Anesthesia: moderate sedation Complications: none Operative/Procedure Note Note: The patient was taken to the operating room and placed on the ESWL table in supine position. With the patient awake, timeout was performed to confirm correct identity, procedure, laterality, anesthesia, and other pertinent lorenza- operative information. After adequate anesthesia, the patient was positioned so that the patient's left flank was positioned over the table cut-out, overlying the dome of the treatment head. Once the patient was adequately sedated, fluoroscopy, as well as Renal ultrasound was used to locate the LEFT renal stone. Renal US confirmed the presence of the stone which measured it to be approximately 6 mm lower pole stone. The stone was visible with fluoroscopy. Renal US revealed, no hydronephrosis, and no solid tumor, and presence of the stone. The position of the stone was optimized by using fluoroscopy in AP and oblique views;placing the stone within the ESWL c-arm crosshairs. Once the stone's position was optimized , the LEFT renal E.S.W.L. was initiated at low energy level. After noting the patient's tolerance to the shockwaves, the intensitiy was ramped up to maximum level. At the end of the procedure, the left renal stone had dissintegrated. Of note, a total of 2500 shockwaves were delivered to the stone. The patient tolerated the ESWL procedures well, was awakened, then taken to recovery in satisfactory condition via stretcher. The patient was dischared home with pain medications, diet orders, and intructions to catch fragments by straining the urine. The patient to to have follow-up renal ultrasound and KUB in 1 to 2 weeks, prior to follow-up visit in my office. He will then proceed with metabolic stone work-up. Discharge Disposition: PACU CC: Rory Da Silva MD
== END ==
LOC: STS 03:03
DX: N20.0 Calculus of kidney (principal); E11.9 Type 2 diabetes mellitus without complications; Z79.84 Long term (current) use of oral hypoglycemic drugs; K21.9 Gastro-esophageal reflux disease without esophagitis; I10 Essential (primary) hypertension; N40.0 Benign prostatic hyperplasia without lower urinary tract symptoms
CPT/HCPCS: J2250; J2405